=== PATIENT | male | born 1995 ===

== ENCOUNTER 2019-11-20 09:55 | Outpatient (CLI) | payer BC ==
--- NOTE | 2019-11-20 10:20 | ULT ---
US Abdominal: 11/20/2019 12:00 AM CLINICAL HISTORY: Elevated LFTs/transaminitis. STUDY: Complete abdominal ultrasound COMPARISON: None. FINDINGS: Liver: Size: Normal. Echogenicity: Hyperechoic consistent with hepatic steatosis. Contour: Smooth. Mass: None. Common bile duct: 4 mm Gallbladder: Normal. Pancreas: Head, body, and tail appear normal. Inferior vena cava: Normal in caliber Aorta: Normal in caliber Spleen: No focal lesions. Spleen measuring 13.4 cm in length. Right kidney: No pelvicalyceal dilatation. Right kidney measuring 12.2 cm in length. Left kidney: No pelvicalyceal dilatation. Left kidney measuring 12.4 cm in length. IMPRESSION: Fatty liver
== END 2019-11-20 09:56 | disposition home or self-care (01) ==
LOC: BICULT 09:55
PROVIDERS: ATTEND Family Medicine
DX: R74.0 Nonspecific elevation of levels of transaminase and lactic acid dehydrogenase [LDH] (principal); K76.0 Fatty (change of) liver, not elsewhere classified
CPT/HCPCS: 93975